=== PATIENT | male | born 1990 | race Caucasian/White ===

== ENCOUNTER 2023-09-05 18:04 | Emergency (ER) | payer BC ==
[~2023-09-05] VITALS: Ht 165.1 cm; Wt 79.4 kg
[2023-09-05 18:14] VITALS: BP 118/82; PULSE 64; RESP 16; TEMP 98; O2SAT 100
== END 2023-09-05 22:09 | disposition home or self-care (01) ==
LOC: ER 18:04
DX: S63.502A Unspecified sprain of left wrist, initial encounter (principal); F19.90 Other psychoactive substance use, unspecified, uncomplicated; V98.8XXA Other specified transport accidents, initial encounter; Y93.89 Activity, other specified; Y92.89 Other specified places as the place of occurrence of the external cause; Y99.8 Other external cause status
CPT/HCPCS: 73110; 99283